=== PATIENT | male | born 1950 | race Caucasian/White ===

== ENCOUNTER 2017-05-12 06:23 | Emergency (ER) | payer OTHER ==
[~2017-05-12] VITALS: Ht 180.3 cm; Wt 86.2 kg
[2017-05-12 06:47] VITALS: BP 138/72
--- NOTE | 2017-05-12 07:09 | PHYS DOC ---
Past History Past Medical History: No Pertinent History Past Surgical History: No Surgical History Alcohol Use: None Drug Use: None Adult General Chief Complaint Chief Complaint: multiple HPI HPI Patient is a 66-year-old male who presents ambulatory to the ED. The patient and his just returned from a 2 week trip to [place], returned late last night. He has been sick for about 4 days. He has felt feverish and had mild chills. He's had a scratchy throat, cough, and head congestion. His ears feel stopped up and he can't hear very well. His eyes have felt scratchy and progressively have developed redness with some discharge. His vision feels blurry. He has tried OTC I lubricating gel and drops. He has not tried any other symptom relievers. Patient is in good general health. He has DJD and has had knee surgery. Meds include Troy for DJD pain, Prilosec because he takes Aleve, Zocor, Zetia. Review of Systems Review of Systems Constitutional: As in history of present illness Eyes: As in history of present illness HENT: As in history of present illness Respiratory: As in history of present illness GI: Denies nausea or vomiting Allergies Allergies Allergies Coded Allergies Type Severity Reaction Last Updated Verified No Known Drug Allergies 05/12/17 No Physical Exam Physical Exam Constitutional: Well developed, well nourished, no acute distress, non-toxic appearance. Alert, mentating normally, checking something on his phone. HENT: Normocephalic, atraumatic, bilateral external ears normal, right TM is dull and appears slightly retracted, left TM normal appearance, oropharynx moist , no oral exudates, some streaky redness in the posterior pharynx. Eyes: PERRLA, EOMI, moderate to severe diffuse conjunctival injection bilaterally. Cornea clear bilaterally. Minimal amount of yellowish white crusting of the eyelashes bilaterally. Neck: Normal range of motion, no stridor. [] Cardiovascular:Heart rate regular rhythm, no murmur [] Lungs & Thorax: Bilateral breath sounds clear to auscultation [] Skin: Warm, dry, no erythema, no rash. [] Extremities: No tenderness, no cyanosis, no clubbing, ROM intact, no edema. [] Neurologic: Alert and oriented X 3, normal motor function, no focal deficits noted. [] Current Patient Data Vital Signs Vital Signs Date Time Temp Pulse Resp B/P (MAP) Pulse Ox O2 Delivery O2 Flow Rate FiO2 05/12/17 06:47 98.0 91 20 95 05/12/17 06:46 138/72 (94) EKG EKG [] Radiology/Procedures Radiology/Procedures [] Course & Med Decision Making Course & Med Decision Making Pertinent Labs and Imaging studies reviewed. (See chart for details) 66-year-old male in good general health presents with 4 days of viral upper respiratory symptoms including progressively worsening conjunctivitis which is part of the viral syndrome. We discussed symptom relievers. See instructions for plan. [] Dragon Disclaimer Dragon Disclaimer This chart was dictated in whole or in part using Voice Recognition software in a busy, high-work load, and often noisy Emergency Department environment. It may contain unintended and wholly unrecognized errors or omissions. Departure Departure: Impression: Primary Impression: Viral upper respiratory infection Additional Impression: Acute viral conjunctivitis of both eyes Disposition: 01 HOME, SELF-CARE Condition: STABLE Referrals: LULU MOLINA DO (PCP) Patient Instructions: Eye - Viral Conjunctivitis, Upper Respiratory Infection, Adult, [id number] Additional Instructions: Your symptoms and exam are consistent with a viral upper respiratory infection and viral conjunctivitis. I recommend fuso-jno-[id number] symptom relievers. Take acetaminophen (brand name Tylenol) for fever, aches, headache. Take decongestants for nasal and ear congestion. You may use oral decongestants such as pseudoephedrine and/or nasal decongestant such as Afrin or Noel-Synephrine. These may be combined if needed. For eye discomfort, you may use vjyn-xci-jmwoxwk eye ointment and drops for lubrication. You may try zfsl-ukd-woewndk eye drops for redness such as Visine. Cold compresses as needed. This illness is very contagious. Please stay home until you're better to avoid spreading. Good handwashing with soap and water. Disinfect fact surfaces in the home. Avoid exposing other people. Problem Qualifiers LUCERO MILLER MD May 12, 2017 07:09
== END 2017-05-12 07:15 | disposition home or self-care (01) ==
LOC: ER 06:23
DX: J06.9 Acute upper respiratory infection, unspecified (principal); B30.9 Viral conjunctivitis, unspecified
CPT/HCPCS: 99281

== ENCOUNTER 2017-06-12 08:10 | Inpatient (IN) | payer OTHER ==
[~2017-06-12] VITALS: Ht 180.3 cm; Wt 85.8 kg
[2017-06-12] MEDS ORDERED: IV NORMAL SALINE 1,000ML 1,000 ML IV ONE (09:30)
[2017-06-12 09:47] LABS: BASO % 0 % (0-3); EOS % 0 % (0-3); HEMATOCRIT 42.5 % (39.0-53.0); HEMOGLOBIN 14.6 g/dL (13.0-17.5); LYMPH % 6 % (24-48); MEAN CORPUSCULAR HEMOGLOBIN 33 pg (25-35); MEAN CORPUSCULAR HGB CONC 34 g/dL (31-37); MEAN CORPUSCULAR VOLUME 97 fL (79-100); MONO # 0.9 x10^3/uL (0.0-1.1); MONO % 5 % (0-9); NEUT # 15.3 x10^3uL (1.8-7.7); NEUT % 89 % (31-73); PLATELET COUNT 169 x10^3/uL (140-400); RED BLOOD COUNT 4.39 x10^6/uL (4.30-5.70); RED CELL DISTRIBUTION WIDTH 12.7 % (11.5-14.5); WHITE BLOOD COUNT 17.2 x10^3/uL (4.0-11.0)
[2017-06-12 09:59] LABS: ALBUMIN 2.9 g/dL (3.4-5.0); ALBUMIN/GLOBULIN RATIO 0.7 (1.0-1.7); CALCIUM 8.4 mg/dL (8.5-10.1); CREATININE 1.1 mg/dL (0.7-1.3); GFR 67.4; POTASSIUM 3.7 mmol/L (3.5-5.1); TOTAL BILIRUBIN 1.3 mg/dL (0.2-1.0)
[2017-06-12] MEDS ORDERED: KETOROLAC 30 MG/ML VIAL. IV ONE (10:00)
[2017-06-12] MEDS ORDERED: PROCHLORPERAZINE 10 MG/2 ML VIAL. IV ONE (10:00)
[2017-06-12] MEDS ORDERED: diphenhydrAMINE 50 MG/ML VIAL IVP ONE (10:00)
[2017-06-12 10:38] LABS: % BANDS 21 % (0-9); % BASOS 0 % (0-3); % EOS 0 % (0-5); % LYMPHS 12 % (24-48); % MONOS 2 % (0-10); % SEGS 65 % (35-66); PLT ESTIMATE ADEQUATE (ADEQUATE); TOXIC GRANULATION PRESENT; TOXIC VACUOLATION PRESENT
[2017-06-12 11:39] LABS: CLARITY,URINE CLOUDY; COLOR,URINE AMBER
[2017-06-12 11:40] LABS: BACTERIA,URINE 0 /HPF (0-FEW); BILIRUBIN,URINE NEG (NEG); GLUCOSE,URINE NEG (NEG); NITRITE,URINE NEG (NEG); UROBILINOGEN,URINE 1 mg/dL (0.2 mg/dL); WBC,URINE 20-40 /HPF (0-4)
[2017-06-12] MEDS ORDERED: IOHEXOL 300 MG/ML 75 ML VIAL. IV ONE (11:45)
--- NOTE | 2017-06-12 12:17 | RAD ---
CT abdomen and pelvis with contrast 06/12/2017 Clinical indication: Pelvic pain for 3 days. Comparison: None. Technique: Multiple CT images of the abdomen and pelvis were obtained following the intravenous administration of 85 mL Omnipaque 300. PQRS Compliance Statement: One or more of the following individualized dose reduction techniques were utilized for this examination: 1. Automated exposure control 2. Adjustment of the mA and/or kV according to patient size 3. Use of iterative reconstruction technique Findings: Abdomen and pelvis: Heart size is normal. Visualized lung bases are clear. Liver is normal in morphology. No suspicious focal lesion. Spleen, adrenal glands, pancreas and gallbladder are unremarkable. There are bilateral renal cysts with the largest in the superior pole of the left kidney measuring up to 4.7 cm. There are few additional bilateral renal hypodensities which are too small to definitively characterize. There is asymmetric focal edema most prominent at the superior pole the right kidney with perinephric stranding, diffuse right ureteral urothelial enhancement and periureteral stranding. No perinephric fluid collection. There is moderate circumferential urinary bladder wall thickening. Abdominal aorta is normal caliber with mild atheromatous disease. No retroperitoneal or mesenteric lymphadenopathy. No abdominal free fluid. Small and large bowel loops are normal in caliber without obstruction. Mild distal colonic diverticulosis without evidence for diverticulitis. Prostate and seminal vesicles are unremarkable. No iliac or inguinal lymphadenopathy. No pelvic free fluid. There is multilevel lumbar spondylosis greatest to moderate degree at L3-L4 and L5-S1. There are bilateral sacroiliac degenerative changes. No destructive osseous lesions. Impression: 1. Circumferential urinary bladder wall thickening with right ureteral urothelial enhancement, periureteral stranding and right perinephric stranding. Findings are concerning for cystitis, ureteritis and right pyelonephritis. 2. A few bilateral renal cysts and additional renal hypodensities which are too small to definitely characterize.
[2017-06-12] MEDS ORDERED: cefTRIAXone SODIUM 1 GM VIAL IV ONE (12:31)
[2017-06-12] MEDS ORDERED: IV NORMAL SALINE 50ML 50 ML ONE (12:31)
[2017-06-12] MEDS: IV NORMAL SALINE 1,000ML 1,000 ML IV SCH ×3 (13:14→22:36)
--- NOTE | 2017-06-12 14:25 | PHYS DOC ---
Past History Past Medical History: GERD Past Surgical History: Other Alcohol Use: None Drug Use: None Adult General Chief Complaint Chief Complaint: ABDOMINAL PAIN HPI HPI Patient is a 66 year old M who presents with generalized abdominal pain it's worse in the suprapubic area. Georgi also describes urinary frequency. He describes nausea and vomiting associated with these symptoms. He states that his pain is dull constant with mild spikes in pain lasting only seconds. He feels that his pain is worse with palpation and movement and better with rest and positioning. He has no other associated symptoms. He is not immunocompromised Review of Systems Review of Systems Constitutional: Denies fever or chills [] Eyes: Denies change in visual acuity, redness, or eye pain [] HENT: Denies nasal congestion or sore throat [] Respiratory: Denies cough or shortness of breath [] Cardiovascular: No additional information not addressed in HPI [] GI: Denies abdominal pain, nausea, vomiting, bloody stools or diarrhea [] : Negative except history of present illness Musculoskeletal: Denies back pain or joint pain [] Integument: Denies rash or skin lesions [] Neurologic: Denies headache, focal weakness or sensory changes [] Endocrine: Denies polydipsia [] All other systems were reviewed and found to be within normal limits, except as documented in this note. Family History Family History Noncontributory Current Medications Current Medications Medications reviewed Current Medications Medications (Trade) Dose Ordered Sig/Vj Start Time Stop Time Status Last Admin Dose Admin Ceftriaxone Sodium 1 gm/ Sodium Chloride 50 ml @ 100 mls/hr 1X ONCE 06/12/17 12:30 06/12/17 12:59 DC 06/12/17 12:35 100 MLS/HR Ceftriaxone Sodium (Rocephin) 1 gm STK-MED ONCE 06/12/17 12:31 06/12/17 12:32 DC Diphenhydramine HCl (Benadryl) 50 mg 1X ONCE 06/12/17 10:00 06/12/17 10:01 DC 06/12/17 09:44 50 MG Iohexol (Omnipaque 300 Mg/ml) 75 ml 1X ONCE 06/12/17 11:45 06/12/17 11:46 DC 06/12/17 11:57 75 ML Ketorolac Tromethamine (Toradol) 30 mg 1X ONCE 06/12/17 10:00 06/12/17 10:01 DC 06/12/17 09:42 30 MG Prochlorperazine Edisylate (Compazine) 10 mg 1X ONCE 06/12/17 10:00 06/12/17 10:01 DC 06/12/17 09:46 10 MG Sodium Chloride 1,000 ml @ 150 mls/hr [id number] 06/12/17 13:15 06/12/17 13:14 150 MLS/HR Allergies Allergies Allergies Coded Allergies Type Severity Reaction Last Updated Verified No Known Drug Allergies 05/12/17 No Physical Exam Physical Exam Constitutional: Well developed, well nourished, non-toxic appearance. Mild distress noted HENT: Normocephalic, atraumatic, bilateral external ears normal, oropharynx moist, no oral exudates, nose normal. [] Eyes: EOMI, conjunctiva normal, no discharge. [] Neck: Normal range of motion, no tenderness, supple, no stridor. [] Cardiovascular:Heart rate regular rhythm, Lungs & Thorax: Bilateral breath sounds clear to auscultation [] Abdomen: Bowel sounds normal, soft, no masses, no pulsatile masses. [] Mild to moderate suprapubic tenderness noted with mild generalized pain to palpation Skin: Warm, dry, no erythema, no rash. [] Back: No tenderness, no CVA tenderness. [] Extremities: No tenderness, no cyanosis, no clubbing, ROM intact, no edema. [] Neurologic: Alert and oriented X 3, normal motor function, normal sensory function, no focal deficits noted. [] Psychologic: Affect normal, judgement normal, mood normal. [] Current Patient Data Vital Signs Vital Signs Date Time Temp Pulse Resp B/P (MAP) Pulse Ox O2 Delivery O2 Flow Rate FiO2 06/12/17 08:10 98.1 113 18 98 Room Air Lab Results Laboratory Tests Test 06/12/17 09:34 06/12/17 11:18 White Blood Count 17.2 x10^3/uL (4.0-11.0) H Red Blood Count 4.39 x10^6/uL (4.30-5.70) Hemoglobin 14.6 g/dL (13.0-17.5) Hematocrit 42.5 % (39.0-53.0) Mean Corpuscular Volume 97 fL (79-100) Mean Corpuscular Hemoglobin 33 pg (25-35) Mean Corpuscular Hemoglobin Concent 34 g/dL (31-37) Red Cell Distribution Width 12.7 % (11.5-14.5) Platelet Count 169 x10^3/uL (140-400) Neutrophils (%) (Auto) 89 % (31-73) H Lymphocytes (%) (Auto) 6 % (24-48) L Monocytes (%) (Auto) 5 % (0-9) Eosinophils (%) (Auto) 0 % (0-3) Basophils (%) (Auto) 0 % (0-3) Neutrophils # (Auto) 15.3 x10^3uL (1.8-7.7) H Lymphocytes # (Auto) 1.0 x10^3/uL (1.0-4.8) Monocytes # (Auto) 0.9 x10^3/uL (0.0-1.1) Eosinophils # (Auto) 0.0 x10^3/uL (0.0-0.7) Basophils # (Auto) 0.0 x10^3/uL (0.0-0.2) Segmented Neutrophils % 65 % (35-66) Band Neutrophils % 21 % (0-9) H Lymphocytes % 12 % (24-48) L Monocytes % 2 % (0-10) Eosinophils % 0 % (0-5) Basophils % 0 % (0-3) Toxic Granulation Present Toxic Vacuolation Present Platelet Estimate Adequate (ADEQUATE) Crenated Cell Present Sodium Level 137 mmol/L (136-145) Potassium Level 3.7 mmol/L (3.5-5.1) Chloride Level 101 mmol/L (98-107) Carbon Dioxide Level 28 mmol/L (21-32) Anion Gap 8 (6-14) Blood Urea Nitrogen 20 mg/dL (8-26) Creatinine 1.1 mg/dL (0.7-1.3) Estimated GFR (Cockcroft-Gault) 67.4 BUN/Creatinine Ratio 18 (6-20) Glucose Level 134 mg/dL (70-99) H Calcium Level 8.4 mg/dL (8.5-10.1) L Magnesium Level 2.0 mg/dL (1.8-2.4) Total Bilirubin 1.3 mg/dL (0.2-1.0) H Aspartate Amino Transferase (AST) 28 U/L (15-37) Alanine Aminotransferase (ALT) 42 U/L (16-63) Alkaline Phosphatase 90 U/L (46-116) Total Protein 7.0 g/dL (6.4-8.2) Albumin 2.9 g/dL (3.4-5.0) L Albumin/Globulin Ratio 0.7 (1.0-1.7) L Lipase 43 U/L (73-393) L Urine Collection Type Void Urine Color Paloma Urine Clarity Cloudy Urine pH 7.0 Urine Specific [place] 1.020 Urine Protein >100 mg/dl (NEG-TRACE) Urine Glucose (UA) Neg mg/dL (NEG) Urine Ketones (Stick) Trace mg/dL (NEG) Urine Blood Mod (NEG) Urine Nitrite Neg (NEG) Urine Bilirubin Neg (NEG) Urine Urobilinogen Dipstick 1 mg/dL (0.2 mg/dL) Urine Leukocyte Esterase Small (NEG) Urine RBC 6-10 /HPF (0-2) Urine WBC 20-40 /HPF (0-4) Urine Squamous Epithelial Cells None /LPF Urine Bacteria 0 /HPF (0-FEW) Urine Mucus Slight /LPF EKG EKG [] Radiology/Procedures Radiology/Procedures CT abdomen and pelvis Impressions: Radiology report was reviewed. Circumferential ureteral bladder wall thickening with right urethral enhancement , ureteral stranding and right perinephric stranding. These findings are consistent with cystitis, urethritis and right pyelonephritis. He also is noted to have cysts on the kidneys bilaterally Course & Med Decision Making Course & Med Decision Making Pertinent Labs and Imaging studies reviewed. (See chart for details) Georgi was started on IV antibiotics. Blood and urine cultures were drawn prior to starting antibiotics. He is admitted in stable condition Dragon Disclaimer Dragon Disclaimer This electronic medical record was generated, in whole or in part, using a voice recognition dictation system. Departure Departure: Impression: Primary Impression: Pyelonephritis Disposition: ADMITTED INPATIENT Condition: STABLE Referrals: LULU MOLINA DO (PCP) RJ MA MD Jun 12, 2017 14:25
[2017-06-12 15:45] VITALS: BP 132/73
[2017-06-12] MEDS ORDERED: ACETAMINOPHEN 500 MG TABLET PO PRN (15:45)
[2017-06-12] MEDS ORDERED: MORPHINE SULFATE 2 MG/ML DISP.SYRIN. IV PRN ×2 (15:45→21:30)
[2017-06-12] MEDS: KETOROLAC 15 MG/ML VIAL. IV PRN (16:29)
[2017-06-12] MEDS ORDERED: ONDANSETRON PF 4 MG/2 ML VIAL. IV PRN (16:45)
[2017-06-12] MEDS ORDERED: NAPR220C4 PO (17:02)
[2017-06-12] MEDS ORDERED: HYDR-2762 PO (17:02)
[2017-06-12] MEDS ORDERED: OMEP20TA63 PO (17:02)
[2017-06-12] MEDS ORDERED: EZET10TA18 PO (17:02)
[2017-06-12] MEDS ORDERED: SIMV40TA PO (17:02)
[2017-06-12] MEDS ORDERED: TEST60GE TD (17:02)
[2017-06-12] MEDS ORDERED: ACETAMINOPHEN 325 MG TABLET PO PRN (18:45)
[2017-06-12] MEDS: ASA/APAP/CAFFEINE 250/250/65MG TABLET. PO PRN (19:28)
[2017-06-12 20:56] VITALS: BP 145/79
[2017-06-12] MEDS: LACTOBACILLUS RHAMNOSUS GG 1 CAPSULE. PO SCH (21:13)
[2017-06-12 22:48] VITALS: BP 116/71
--- NOTE | 2017-06-12 22:58 | RAD ---
CT HEAD WO CONTRAST dated 06/12/2017 11:23 PM Indication: Headache.Severe Headache, patient's been sick x 4 days - ?infection/? virus. Comparison: No comparison is available. Technique: Contiguous axial imaging the head was performed from skull base to vertex. One or more of the following individualized dose reduction techniques were utilized for this examination: 1. Automated exposure control 2. Adjustment of the mA and/or kV according to patient size 3. Use of iterative reconstruction technique Findings: Ventricles and sulci are mildly prominent for age. No midline shift or mass effect. Brain parenchyma is of normal attenuation. No hemorrhage or extra-axial collection. Posterior fossa and brainstem unremarkable. IMPRESSION: 1. No evidence of acute intracranial hemorrhage or mass. 2. Partial opacification of the bilateral mastoid air cells, nonspecific. Visualized paranasal sinuses and mastoid air cells are clear. No apparent calvarial abnormality. Minimal opacification of the posterior mastoid air cells bilaterally. Electronically signed by: Georgi Mcgowan MD (06/12/2017 10:55 PM) [facility]
[2017-06-13] MEDS: KETOROLAC 15 MG/ML VIAL. IV PRN (02:00)
[2017-06-13 05:28] VITALS: BP 119/67
[2017-06-13] MEDS: IV NORMAL SALINE 1,000ML 1,000 ML IV SCH ×2 (05:50→18:43)
[2017-06-13 06:25] LABS: BASO % 0 % (0-3); EOS % 0 % (0-3); HEMATOCRIT 36.6 % (39.0-53.0); HEMOGLOBIN 12.8 g/dL (13.0-17.5); LYMPH % 12 % (24-48); MEAN CORPUSCULAR HEMOGLOBIN 34 pg (25-35); MEAN CORPUSCULAR HGB CONC 35 g/dL (31-37); MEAN CORPUSCULAR VOLUME 96 fL (79-100); MONO # 0.6 x10^3/uL (0.0-1.1); MONO % 7 % (0-9); NEUT # 6.8 x10^3uL (1.8-7.7); NEUT % 81 % (31-73); PLATELET COUNT 130 x10^3/uL (140-400); RED BLOOD COUNT 3.82 x10^6/uL (4.30-5.70); RED CELL DISTRIBUTION WIDTH 12.9 % (11.5-14.5); WHITE BLOOD COUNT 8.4 x10^3/uL (4.0-11.0)
[2017-06-13 06:39] LABS: ALBUMIN 2.4 g/dL (3.4-5.0); ALBUMIN/GLOBULIN RATIO 0.7 (1.0-1.7); CALCIUM 8.1 mg/dL (8.5-10.1); GFR 75.2; MAGNESIUM 1.9 mg/dL (1.8-2.4); POTASSIUM 3.7 mmol/L (3.5-5.1); TOTAL BILIRUBIN 0.7 mg/dL (0.2-1.0); TOTAL PROTEIN 5.9 g/dL (6.4-8.2)
[2017-06-13] MEDS: LACTOBACILLUS RHAMNOSUS GG 1 CAPSULE. PO SCH ×2 (07:30→21:08)
[2017-06-13] MEDS: ASA/APAP/CAFFEINE 250/250/65MG TABLET. PO PRN (07:30)
[2017-06-13] MEDS: PANTOPRAZOLE 40 MG TABLET. PO SCH (07:31)
[2017-06-13] MEDS: EZETIMIBE 10 MG TABLET PO SCH (07:32)
[2017-06-13] MEDS ORDERED: FLU VACC QS2017-18 (36MOS+)/PF 0.5 ML SYRINGE. VAX IM ONE (09:00)
[2017-06-13] MEDS ORDERED: PNEUMOC CONJ VACC 23-VALENT 0.5 ML VIAL. VAX IM ONE (09:00)
[2017-06-13] MEDS ORDERED: MVI, ADULT NO.4 WITH VIT K 10 ML, FOLIC ACID 1 MG, THIAMINE 100 MG in IV DEXTROSE 5 %-0... IV SCH ×4 (09:00)
[2017-06-13] MEDS ORDERED: BUTALB/APAP/CAFEIN 50/325/40MG TABLET. PO PRN (09:00)
[2017-06-13] MEDS ORDERED: BUTALB/APAP/CAFEIN 50/325/40MG TABLET. PO ONE (09:15)
[2017-06-13] MEDS: [UNRECOGNIZED DRUG - REMARK] IV SCH ×3 (09:19)
[2017-06-13] MEDS: FOLIC ACID 1 MG TABLET PO SCH (09:20)
[2017-06-13 10:45] VITALS: BP 114/66
[2017-06-13 15:21] VITALS: BP 129/83
[2017-06-13] MEDS: KETOROLAC 30 MG/ML VIAL. IV PRN ×2 (15:39→22:28)
[2017-06-13 18:35] VITALS: BP 103/64
--- NOTE | 2017-06-13 18:55 | HP ---
ADMIT DATE: REASON FOR ADMISSION: Pyelonephritis. HISTORY OF PRESENT ILLNESS: This is a 66-year-old gentleman, who stated last several days ago, he became nauseated, it was throwing up, had low-grade fever, sweats and chills. Urine had a very bad smell. He had abdominal cramping and he did not have pain with urination, but frequency. He has also had a very bad headache as well. PAST MEDICAL HISTORY: Degenerative disk disease and hyperlipidemia. MEDICATIONS: Zocor, Zetia, Aleve, which he takes on a daily basis, and Naprosyn. SOCIAL HISTORY: He is a retired . No tobacco. He has not worked around chemicals ____. REVIEW OF SYSTEMS: As per HPI. Positive for testicular tenderness. OBJECTIVE: VITAL SIGNS: T-max 99.5, blood pressure 114/66, pulse 73. The patient also was tachycardic on admission. HEENT: Color is slightly pale. Tongue was moist. NECK: Supple. LUNGS: Clear. CARDIOVASCULAR: Regular rhythm and rate. ABDOMEN: Soft, nontender. There was no flank tenderness. GENITOURINARY: Normal external genitalia exam. He does have some mild tenderness of both testicles. Epididymis is not tender and no masses were palpated. LABORATORY DATA: His white count was 17.2 yesterday and this morning, it is 8.4; hemoglobin 12.8, hematocrit 36.6. Chemistry: His albumin is 2.9, bilirubin was 1.3, now it is 0.7. Slightly elevated liver function tests. Urinalysis, 20 to 40 white cells, moderate blood, negative nitrites, small leukocyte esterase. IMAGING: CT is bladder wall thickening with ureteral urothelial enhancement. Periureteral stranding consistent with cystitis, ureteritis and right pyelonephritis and bilateral renal cysts. ASSESSMENT: 1. Sepsis with pyelonephritis, ureteritis, and cystitis. 2. Degenerative disk disease. 3. Chronic pain. 4. Hyperlipidemia. 5. Dehydration. 6. Headache. PLAN: Hydration, antibiotics. CT negative ____ treat his headache. JOSEFINA MURILLO DO DR: HODA/anita JOB#: [id number] / [id number]
[2017-06-13] MEDS: SIMVASTATIN 40 MG TABLET. PO SCH (21:08)
[2017-06-13 23:23] VITALS: BP 138/51
[2017-06-14] MEDS: IV NORMAL SALINE 1,000ML 1,000 ML IV SCH ×2 (05:04→16:31)
[2017-06-14] MEDS: KETOROLAC 30 MG/ML VIAL. IV PRN ×2 (05:04→21:18)
[2017-06-14 05:18] VITALS: BP 146/69
[2017-06-14 07:09] LABS: BASO % 0 % (0-3); EOS % 1 % (0-3); HEMATOCRIT 35.1 % (39.0-53.0); HEMOGLOBIN 12.2 g/dL (13.0-17.5); LYMPH % 16 % (24-48); MEAN CORPUSCULAR HEMOGLOBIN 33 pg (25-35); MEAN CORPUSCULAR HGB CONC 35 g/dL (31-37); MEAN CORPUSCULAR VOLUME 96 fL (79-100); MONO # 0.4 x10^3/uL (0.0-1.1); MONO % 7 % (0-9); NEUT # 4.8 x10^3uL (1.8-7.7); NEUT % 76 % (31-73); PLATELET COUNT 130 x10^3/uL (140-400); RED BLOOD COUNT 3.65 x10^6/uL (4.30-5.70); RED CELL DISTRIBUTION WIDTH 12.9 % (11.5-14.5); WHITE BLOOD COUNT 6.3 x10^3/uL (4.0-11.0)
[2017-06-14 07:40] LABS: ALBUMIN 2.2 g/dL (3.4-5.0); ALBUMIN/GLOBULIN RATIO 0.6 (1.0-1.7); CALCIUM 7.8 mg/dL (8.5-10.1); CREATININE 0.9 mg/dL (0.7-1.3); MAGNESIUM 1.9 mg/dL (1.8-2.4); POTASSIUM 3.8 mmol/L (3.5-5.1); TOTAL BILIRUBIN 0.6 mg/dL (0.2-1.0); TOTAL PROTEIN 5.6 g/dL (6.4-8.2)
[2017-06-14] MEDS: LACTOBACILLUS RHAMNOSUS GG 1 CAPSULE. PO SCH ×2 (08:52→21:00)
[2017-06-14] MEDS: PANTOPRAZOLE 40 MG TABLET. PO SCH (08:53)
[2017-06-14] MEDS: EZETIMIBE 10 MG TABLET PO SCH (08:53)
[2017-06-14] MEDS: FOLIC ACID 1 MG TABLET PO SCH (08:53)
[2017-06-14] MEDS: [UNRECOGNIZED DRUG - REMARK] IV SCH ×3 (09:36)
[2017-06-14 11:03] VITALS: BP 131/71
[2017-06-14] MEDS: ASA/APAP/CAFFEINE 250/250/65MG TABLET. PO PRN (13:52)
[2017-06-14 15:20] VITALS: BP 144/83
--- NOTE | 2017-06-14 18:25 | CONS ---
DATE OF CONSULTATION: 06/13/2017 NEUROLOGY CONSULTATION REFERRING PHYSICIAN: Dr. Fenton. REASON FOR CONSULTATION: Severe headaches. HISTORY OF PRESENT ILLNESS: This is a 66-year-old right-handed white male who has had intermittent severe frontal headache radiating to the top of the head, described as a severe pressure. He denies nausea, vomiting, photophobia or phonophobia. The symptoms started approximately 3 days ago, but have worsened yesterday. He also complains of suprapubic abdominal pain associated with increased urinary frequency. He was found to have urinary tract infection versus pyelonephritis. The patient also complains of chronic lower back pain and sometimes radicular in nature. He denies numbness or paresthesia or weakness of the lower extremities. According to the patient, his headache has improved after given Toradol and Fioricet. His headache now is 2/10 on the pain scale. He denies diarrhea or constipation. PAST MEDICAL HISTORY: Significant for chronic lower back pain secondary to degenerative disk disease as described above. The patient underwent EMG/NCS several yeas ago and study was consistent with radiculopathy. History of hyperlipidemia. SOCIAL HISTORY: The patient is . He is retired . He denies smoking, alcohol drinking, or illicit drug use. He is and has 2 children. CURRENT HOME MEDICATIONS: Zetia, Zocor, Aleve. REVIEW OF SYSTEMS: A 10-point review of system was performed and consistent with history of present illness. ALLERGIES: No known drug allergies. PHYSICAL EXAMINATION: GENERAL: Well-developed, well-nourished white male, not in acute distress. He weighs 186 pounds. VITAL SIGNS: Blood pressure 103/64, respiratory rate 20, pulse is 70 and regular, oxygen saturation 97% on room air. HEENT: Normocephalic, atraumatic, otherwise unremarkable. NECK: Supple. Negative for carotid bruit, lymphadenopathy or thyromegaly. LUNGS: Clear to A and P. CARDIOVASCULAR: Regular rate and rhythm, normal S1, S2. There is no S3, S4 or murmur. ABDOMEN: Soft. Bowel sounds positive. EXTREMITIES: Negative for cyanosis, clubbing or pitting edema. NEUROLOGIC: MENTAL STATUS: The patient is alert and oriented x 3. The speech is fluent. There is no language dysfunction. Memory, judgment, and abstract thinking are normal. The patient denies hallucination or delusion. CRANIAL NERVES: Visual juarez are full. The pupils are reactive to light and accommodation. The extraocular movements are intact. There is no nystagmus. There is no facial motor or sensory deficit. Hearing is intact bilaterally. The palate is elevated symmetrically. Sternocleidomastoid muscles are powerful bilaterally. The patient shrugs his shoulders symmetrically and protrudes his tongue in the midline without fasciculation or atrophy. MOTOR: No focal muscle bulk was seen. The tone was normal. The strength was 5/5 throughout. Sensory examination revealed normal pinprick, light touch, vibratory and position senses. Deep tendon reflexes were symmetric and active without pathology responses. Gait and coordination are normal. DIAGNOSTIC DATA: Nonenhanced CT scan revealed no evidence of acute intracranial process, partial opacification of the bilateral mastoid air cell. CT, previous, abdomen revealed multilevel spondylosis at L3-L4 and L5-S1, thickening of urinary bladder wall with suggestions of cystitis, ureteritis and right pyelonephritis along with bilateral renal cysts. LABORATORY DATA: CBC revealed white blood cells of 8.4, hemoglobin 12.8, hematocrit 36.6, platelet count 130,000. Chemistry revealed sodium of 138, potassium 3.7, chloride 105, CO2 24, BUN 16, creatinine 1, glucose 109, calcium 8.1. AST is high at 71 and ALT is high at 88, normal magnesium at 1.9. Urinalysis: Small urinary leukocyte esterase with white blood cells between 20-40. IMPRESSION: 1. Severe frontal headaches subsided with nonsteroidal anti-inflammatory drugs and Fioricet. 2. Pyelonephritis or urethritis versus cystitis. 3. Longstanding history of hyperlipidemia. RECOMMENDATIONS: 1. Continue with current management initiated by Dr. Fenton for pyelonephritis. 2. Continue with current medical management with nonsteroidal anti-inflammatory drugs __ along with analgesics. M Louie MACHUCA MD DR: KIM/anita JOB#: [id number] / [id number]
[2017-06-14 20:20] VITALS: BP 148/85
[2017-06-14] MEDS: SIMVASTATIN 40 MG TABLET. PO SCH (21:00)
[2017-06-14 23:23] VITALS: BP 137/75
--- NOTE | 2017-06-14 23:27 | PN ---
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 He had mild global headaches. He denies nausea, vomiting, chest pain, shortness of breath or palpitation, weakness, numbness or paresthesia or vertigo. OBJECTIVE: GENERAL: Well-developed, well-nourished white male, not in acute distress. VITAL SIGNS: Blood pressure is 146/69, respiratory rate 22, pulse is 91 and regular, temperature is 103 orally, the oxygen saturation 95% on room air. HEENT: Normocephalic, atraumatic, otherwise unremarkable. NECK: Supple. Negative for carotid bruit, lymphadenopathy or thyromegaly. LUNGS: Clear to A and P. CARDIOVASCULAR: Regular rhythm, normal S1, S2. There is no S3, S4 or murmur. ABDOMEN: Soft. Bowel sounds positive. EXTREMITIES: Negative for cyanosis, clubbing or pitting edema. NEUROLOGIC: Normal mental status and intact cranial nerves. There is no focal motor or sensory deficit. Deep tendon reflexes are symmetric and active without pathology responses. Gait and coordination are normal. LABORATORY DATA: CBC revealed white blood cells of 6.3, hemoglobin 12.2, hematocrit 35.1, platelet count 130,000. Chemistry revealed sodium of 139, potassium 3.8, chloride 108, CO2 of 23, BUN 19, creatinine 0.89. Glucose 106, calcium is 7.8. Liver enzymes are elevated with an AST of 68 and ALT 160. IMPRESSION: 1. Pyelonephritis. 2. Frontal headaches -- not migraines, response to nonsteroidal anti-inflammatory drugs. 3. Hyperlipidemia, chronic lower back pain, and dehydration. RECOMMENDATIONS: Continue with current management and care initiated by Dr. Fenton. M Louie MACHUCA MD DR: KIM/anita JOB#: [id number] / [id number]
--- NOTE | 2017-06-15 00:17 | PN ---
DATE: 06/14/2017 CURRENT PROBLEMS: 1. Sepsis with pyelonephritis, ureteritis, and cystitis. 2. Degenerative disk disease. 3. Chronic low back pain. 4. Hyperlipidemia. 5. Dehydration, which is resolved. 6. Headache. SUBJECTIVE: Did spike a little low grade fever up to 100.3 yesterday afternoon, but has had a good night sleep and is feeling better. OBJECTIVE: VITAL SIGNS: ____ Blood pressure 131/71, pulse 81, respirations 20, pulse ox 98% on room air, temperature 97.8. GENERAL: His color is good. NECK: Supple. LUNGS: Clear. CARDIOVASCULAR: Regular rhythm and rate. ABDOMEN: Soft, nontender. EXTREMITIES: Without edema. LABORATORY DATA: White count 6.3 down from 17.2. Slightly low platelet count, likely from ceftriaxone. Chemistry: Albumin is 2.2 ____ which is delusional. Still has slightly elevated liver function tests. PLAN: Continue IV antibiotics for 1 additional day and should be ready for discharge tomorrow. JOSEFINA MURILLO DO DR: HODA/anita JOB#: [id number] / [id number]
[2017-06-15 06:08] VITALS: BP 144/79
[2017-06-15 06:26] LABS: BASO % 0 % (0-3); EOS % 1 % (0-3); HEMATOCRIT 34.9 % (39.0-53.0); LYMPH # 1.3 x10^3/uL (1.0-4.8); LYMPH % 18 % (24-48); MEAN CORPUSCULAR HEMOGLOBIN 33 pg (25-35); MEAN CORPUSCULAR HGB CONC 35 g/dL (31-37); MEAN CORPUSCULAR VOLUME 96 fL (79-100); MONO # 0.6 x10^3/uL (0.0-1.1); MONO % 9 % (0-9); NEUT % 72 % (31-73); PLATELET COUNT 140 x10^3/uL (140-400); RED BLOOD COUNT 3.62 x10^6/uL (4.30-5.70); RED CELL DISTRIBUTION WIDTH 13.2 % (11.5-14.5)
[2017-06-15 06:41] LABS: ALBUMIN 2.3 g/dL (3.4-5.0); ALBUMIN/GLOBULIN RATIO 0.7 (1.0-1.7); CALCIUM 8.1 mg/dL (8.5-10.1); CREATININE 0.9 mg/dL (0.7-1.3); POTASSIUM 3.8 mmol/L (3.5-5.1); TOTAL BILIRUBIN 0.8 mg/dL (0.2-1.0); TOTAL PROTEIN 5.8 g/dL (6.4-8.2)
[2017-06-15] MEDS ORDERED: SULF1TAB24 PO (06:53)
[2017-06-15] MEDS: LACTOBACILLUS RHAMNOSUS GG 1 CAPSULE. PO SCH (07:39)
[2017-06-15] MEDS: PANTOPRAZOLE 40 MG TABLET. PO SCH (07:39)
[2017-06-15] MEDS: EZETIMIBE 10 MG TABLET PO SCH (07:39)
--- NOTE | 2017-06-15 10:00 | PDOC3 ---
Discharge Summary Visit Information Date of Admission: Jun 12, 2017 Date of Discharge: Jun 15, 2017 Final Diagnosis Problems Medical Problems: (1) Pyelonephritis Status: Acute 1. Sepsis with pyelonephritis, ureteritis, and cystitis. 2. Degenerative disk disease. 3. Chronic low back pain. 4. Hyperlipidemia. 5. Dehydration, which is resolved. 6. Headache. 7. ELEVATED LIVER FUNCTION TESTS 8. HEMATURIA 9. MODERATED PROTEIN MALNUTRITION DUE TO ILLNESS Problems: Brief Hospital Course Allergies Allergies Coded Allergies Type Severity Reaction Last Updated Verified No Known Drug Allergies 05/12/17 No Vital Signs Vital Signs Date Time Temp Pulse Resp B/P (MAP) Pulse Ox O2 Delivery O2 Flow Rate FiO2 06/15/17 08:00 Room Air 06/15/17 06:08 98.3 78 20 144/79 (100) 96 Lab Results Laboratory Tests Test 06/14/17 06:30 06/15/17 05:52 White Blood Count 6.3 x10^3/uL (4.0-11.0) 7.0 x10^3/uL (4.0-11.0) Red Blood Count 3.65 x10^6/uL (4.30-5.70) 3.62 x10^6/uL (4.30-5.70) Hemoglobin 12.2 g/dL (13.0-17.5) 12.0 g/dL (13.0-17.5) Hematocrit 35.1 % (39.0-53.0) 34.9 % (39.0-53.0) Mean Corpuscular Volume 96 fL (79-100) 96 fL (79-100) Mean Corpuscular Hemoglobin 33 pg (25-35) 33 pg (25-35) Mean Corpuscular Hemoglobin Concent 35 g/dL (31-37) 35 g/dL (31-37) Red Cell Distribution Width 12.9 % (11.5-14.5) 13.2 % (11.5-14.5) Platelet Count 130 x10^3/uL (140-400) 140 x10^3/uL (140-400) Neutrophils (%) (Auto) 76 % (31-73) 72 % (31-73) Lymphocytes (%) (Auto) 16 % (24-48) 18 % (24-48) Monocytes (%) (Auto) 7 % (0-9) 9 % (0-9) Eosinophils (%) (Auto) 1 % (0-3) 1 % (0-3) Basophils (%) (Auto) 0 % (0-3) 0 % (0-3) Neutrophils # (Auto) 4.8 x10^3uL (1.8-7.7) 5.0 x10^3uL (1.8-7.7) Lymphocytes # (Auto) 1.0 x10^3/uL (1.0-4.8) 1.3 x10^3/uL (1.0-4.8) Monocytes # (Auto) 0.4 x10^3/uL (0.0-1.1) 0.6 x10^3/uL (0.0-1.1) Eosinophils # (Auto) 0.0 x10^3/uL (0.0-0.7) 0.0 x10^3/uL (0.0-0.7) Basophils # (Auto) 0.0 x10^3/uL (0.0-0.2) 0.0 x10^3/uL (0.0-0.2) Sodium Level 139 mmol/L (136-145) 140 mmol/L (136-145) Potassium Level 3.8 mmol/L (3.5-5.1) 3.8 mmol/L (3.5-5.1) Chloride Level 108 mmol/L (98-107) 108 mmol/L (98-107) Carbon Dioxide Level 23 mmol/L (21-32) 23 mmol/L (21-32) Anion Gap 8 (6-14) 9 (6-14) Blood Urea Nitrogen 19 mg/dL (8-26) 15 mg/dL (8-26) Creatinine 0.9 mg/dL (0.7-1.3) 0.9 mg/dL (0.7-1.3) Estimated GFR (Cockcroft-Gault) 85.0 85.0 BUN/Creatinine Ratio 21 (6-20) 17 (6-20) Glucose Level 106 mg/dL (70-99) 107 mg/dL (70-99) Calcium Level 7.8 mg/dL (8.5-10.1) 8.1 mg/dL (8.5-10.1) Magnesium Level 1.9 mg/dL (1.8-2.4) 2.0 mg/dL (1.8-2.4) Total Bilirubin 0.6 mg/dL (0.2-1.0) 0.8 mg/dL (0.2-1.0) Aspartate Amino Transf (AST/SGOT) 68 U/L (15-37) 71 U/L (15-37) Alanine Aminotransferase (ALT/SGPT) 116 U/L (16-63) 132 U/L (16-63) Alkaline Phosphatase 115 U/L (46-116) 131 U/L (46-116) Total Protein 5.6 g/dL (6.4-8.2) 5.8 g/dL (6.4-8.2) Albumin 2.2 g/dL (3.4-5.0) 2.3 g/dL (3.4-5.0) Albumin/Globulin Ratio 0.6 (1.0-1.7) 0.7 (1.0-1.7) Brief Hospital Course Mr. Hall is a 66 old [sex] who presented with [ ] man, who stated last several days ago, he became nauseated, it was throwing up, had low-grade fever, sweats and chills. Urine had a very bad smell. He had abdominal cramping and he did not have pain with urination, but frequency. He has also had a very bad headache as well. WORK-UP SHOWED RIGHT PYELONEPHRITIS, URETERITS AND CYSTITIS. hE WAS TREATED WITH CEFTRIAZXONE AND HIS WBC CAME DOWN VERY NICELY. HE HAD A BUMP IN HIS LIVER FUNCTION TESTS SHICH WERE NORMAL ON ADMISSION. THSI MAY BE DUE TO ILLNESS OR MEDICATION. HE WAS HYDRATED WITH IV FLUIDS. HE WAS READY FOR DISCHARGE AND WILL BE SENT HOME ON PO ANTIBIOTIC. EXTENSIVE DISCHARGE INSTRUCTIONS WERE DONE BY MYSELF. HE IS TO SEE HIS PCP EARLY NEXT WEEK. Discharge Information Condition at Discharge: Improved Disposition/Orders: D/C to Home Dischare Medications Current Medications Ketorolac Tromethamine (Toradol) 30 mg 1X ONCE IV Last administered on t 09:42; Start 06/12/17 at 10:00; Stop 06/12/17 at 10:01; Status DC Prochlorperazine Edisylate (Compazine) 10 mg 1X ONCE IV Last administered on 06/12/17 09:46; Start 06/12/17 at 10:00; Stop 06/12/17 at 10:01; Status DC Diphenhydramine HCl (Benadryl) 50 mg 1X ONCE IVP Last administered on 09:44; Start 06/12/17 at 10:00; Stop 06/12/17 at 10:01; Status DC Sodium Chloride 1,000 ml @ 1,000 mls/hr 1X ONCE IV Last administered on 06/12 09:41; Start 06/12/17 at 09:30; Stop 06/12/17 at 10:29; Status DC Iohexol (Omnipaque 300 Mg/ml) 75 ml 1X ONCE IV Last administered on 11:57; Start 06/12/17 at 11:45; Stop 06/12/17 at 11:46; Status DC Ceftriaxone Sodium 1 gm/ Sodium Chloride 50 ml @ 100 mls/hr 1X ONCE IV Last administered on 06/12/17 12:35; Start 06/12/17 at 12:30; Stop 06/12/17 at 12 :59; Status DC Sodium Chloride 50 ml @ As Directed STK-MED ONCE .ROUTE ; Start 06/12/17 at 12: 31; Stop 06/12/17 at 12:32; Status DC Ceftriaxone Sodium (Rocephin) 1 gm STK-MED ONCE IV ; Start 06/12/17 at 12:31; Stop 06/12/17 at 12:32; Status DC Sodium Chloride 1,000 ml @ 75 mls/hr [id number] IV Last administered on 16:31; Start 06/12/17 at 13:15; Stop 06/15/17 at 06:29; Status DC Ceftriaxone Sodium 1 gm/ Sodium Chloride 50 ml @ 100 mls/hr Q24H IV ; Start at 16:00; Stop 06/12/17 at 16:14; Status DC Morphine Sulfate (Morphine 2mg Syringe) 1 mg PRN Q1HR PRN IV PAIN; Start 06/12 at 15:45; Stop 06/12/17 at 21:28; Status DC Acetaminophen (Tylenol) 650 mg PRN Q6HRS PRN PO PAIN / TEMP; Start 06/12/17 at 15:45; Stop 06/12/17 at 18:41; Status DC Ketorolac Tromethamine (Toradol) 15 mg PRN Q6HRS PRN IV PAIN Last administered on 06/13/17 02:00; Start 06/12/17 at 15:45; Stop 06/13/17 at 06:54; Status DC Lactobacillus Rhamnosus (Culturelle) 1 cap BID PO Last administered on 07:39; Start 06/12/17 at 21:00 Ceftriaxone Sodium 1 gm/ Sodium Chloride 50 ml @ 100 mls/hr Q24H IV Last administered on 06/14/17 13:39; Start 06/13/17 at 13:00 Ondansetron HCl (Zofran) 4 mg PRN Q6HRS PRN IV NAUSEA/VOMITING Last administered on 06/12/17 16:29; Start 06/12/17 at 16:45 Influenza Virus Vaccine Quadrival (Fluarix Quad [id number] Syringe) 0.5 ml ONCE ONCE VAX IM Last administered on 06/13/17 10:13; Start 06/13/17 at 09:00; Stop 06/13/17 at 09:01; Status DC Pneumococcal Polyvalent Vaccine (Pneumovax 23) 0.5 ml ONCE ONCE VAX IM Last administered on 06/13/17 10:15; Start 06/13/17 at 09:00; Stop 06/13/17 at 09 :01; Status DC Acetaminophen (Tylenol) 650 mg PRN Q6HRS PRN PO PAIN / TEMP; Start 06/12/17 at 18:45 Acetaminophen/ Aspirin/Caffeine (Excedrin Migraine) 1 tab PRN Q6HRS PRN PO MIGRAINE HEADACHE Last administered on 06/14/17 13:52; Start 06/12/17 at 19: 00 EZETIMIBE (Zetia) 10 mg DAILY PO Last administered on 06/15/17 07:39; Start 06/13/17 at 09:00 Simvastatin (Zocor) 40 mg QHS PO Last administered on 06/14/17 21:00; Start 06/13/17 at 21:45 Pantoprazole Sodium (Protonix) 40 mg DAILYAC PO Last administered on 07:39; Start 06/13/17 at 07:30 Morphine Sulfate (Morphine 2mg Syringe) 2 mg PRN Q1HR PRN IV PAIN Last administered on 06/12/17 22:43; Start 06/12/17 at 21:30; Stop 06/15/17 at 06 :29; Status DC Ketorolac Tromethamine (Toradol) 30 mg PRN Q6HRS PRN IV PAIN Last administered on 06/14/17 21:18; Start 06/13/17 at 07:15; Stop 06/17/17 at 07:14 Acetaminophen/ Butalbital/ Caffeine (Fioricet) 1 tab 1X ONCE PO Last administered on 06/13/17 09:20; Start 06/13/17 at 09:15; Stop 06/13/17 at 09 :16; Status DC Acetaminophen/ Butalbital/ Caffeine (Fioricet) 1 tab PRN Q6HRS PRN PO MIGRAINE HEADACHE Last administered on 06/13/17 15:39; Start 06/13/17 at 09:00 Multivitamins/ Minerals 10 ml/ Folic Acid 1 mg/ Thiamine HCl 100 mg/Dextrose/ Sodium Chloride 1,011.2 ml @ 125 mls/ hr DAILY IV ; Start 06/13/17 at 09:00; Stop 06/13/17 at 09:00; Status DC Multivitamins/ Minerals 10 ml/ Thiamine HCl 100 mg/Dextrose/ Sodium Chloride 1, 011 ml @ 125 mls/hr DAILY IV Last administered on 06/14/17 09:36; Start at 09:00; Stop 06/15/17 at 06:29; Status DC Folic Acid (Folic Acid) 1 mg DAILY PO Last administered on 06/14/17 08:53; Start 06/13/17 at 09:00; Stop 06/15/17 at 06:29; Status DC Active Scripts Active Bactrim Ds Tablet (Sulfamethoxazole/Trimethoprim) 1 Each Tablet 1 Tab PO BID Reported Aleve (Naproxen Sodium) 220 Mg Capsule 220 Mg PO Q6HRS LAST DOSE GIVEN: DATE: TIME: NEXT DOSE DUE: DATE: TIME: Fortesta (Testosterone) 60 Gm Gel.deployment technician 60 Gm TD DAILY LAST DOSE GIVEN: DATE: TIME: NEXT DOSE DUE: DATE: TIME: Prilosec Otc (Omeprazole Magnesium) 20 Mg Tablet.dr 20 Mg PO DAILY LAST DOSE GIVEN: DATE: TIME: NEXT DOSE DUE: DATE: TIME: Zetia (Ezetimibe) 10 Mg Tablet 1 Tab PO DAILY LAST DOSE GIVEN: DATE: TIME: NEXT DOSE DUE: DATE: TIME: Zocor (Simvastatin) 40 Mg Tablet 1 Tab PO QHS LAST DOSE GIVEN: DATE: TIME: NEXT DOSE DUE: DATE: TIME: Hydrocodone-Apap 7.5-325 (Hydrocodone Bit/Acetaminophen) 1 Each Tablet 1 Tab PO PRN Q6HRS PRN LAST DOSE GIVEN: DATE: TIME: NEXT DOSE DUE: DATE: TIME: Patient Instructions Patient Instuctions TAKE IT EASY. DISCHARGE INSTRUCTIONS ON [facility]. JOSEFINA MURILLO DO Jun 15, 2017 10:00
== END 2017-06-15 09:30 | disposition home or self-care (01) | DRG 872 ==
LOC: ER 08:10 → 1 SOUTH 13:45
PROVIDERS: ADMIT Family Medicine; ATTEND Family Medicine
DX: A41.9 Sepsis, unspecified organism (principal); E44.0 Moderate protein-calorie malnutrition; N12 Tubulo-interstitial nephritis, not specified as acute or chronic; N30.91 Cystitis, unspecified with hematuria; E78.5 Hyperlipidemia, unspecified; G43.909 Migraine, unspecified, not intractable, without status migrainosus; M54.10 Radiculopathy, site unspecified; M54.5 Low back pain; N28.89 Other specified disorders of kidney and ureter; E86.0 Dehydration; G89.29 Other chronic pain; K21.9 Gastro-esophageal reflux disease without esophagitis; Z79.899 Other long term (current) drug therapy; Z68.26 Body mass index [BMI] 26.0-26.9, adult; Z79.1 Long term (current) use of non-steroidal anti-inflammatories (NSAID)
CPT/HCPCS: 36415; 70450; 74177; 80053; 81001; 83690; 83735; 85007; 85025; 87040; 90686; 90732; 96361; 96365; 96375; J0696; J0780; J1200; J1885; J2270; J2405; Q9967; 99285-25; J7030